=== PATIENT | male | born 1970 ===

== ENCOUNTER 2023-05-15 09:17 | Outpatient (AMB) | payer OTHER, SELFPAY ==
--- NOTE | 2023-05-15 09:26 | A.OFFVIS_ITS ---
Intake Vital Signs 05/15/23 09:34 Height 5 ft 5 in Weight 126 lb 4 oz BMI 21.0 BP 98/68 Blood Pressure Location Lt brachial Position Sitting Pulse 73 Pulse Source Pulse Oximeter Pulse Oximetry (%) 96 Oxygen Delivery Method Room Air Intake Visit Reasons: E-HEALTH CLAIMS EXAMINER: Insomnia - LVM Intake Note: NPV for Insomnia Production Operations Inspector Required: No Allergies No Known Allergies Allergy (Verified 05/15/23 09:28) HPI HPI Comments History of Present Illness Details 52 y/o male patient presents for new in-person visit for sleep consultation. Pt reports difficulty falling asleep and staying sleep. He uses marijuana to promote sleep but it is not helpful. He smokes about 10 cigarettes a day until late night. He wakes up almost every 15-20 min, tosses and turns and having difficulty to go back to sleep. The sleep problem has been worsened over the last couple of years. He keep watching TV when he wakes up and staying awake. He drinks tea and soda a lot during the day and not eating well. He tried several medications including melatonin, Nyquel, Benadryl and other OTC sleep aids and stopped due to liver problem. He denies snoring, denies daytime sleepiness. He does not work, and stays home all day and he is not physically active. Sleep questionnaire: Do you snore? No. Do you wake up gasping at night? No. Do you have episodes of apneas? No. If yes, are they witnessed? No. Do you have episodes of nocturnal chest pain or dyspnea? No. Do you have difficulty initiating sleep? Yes. Do you have difficulty maintaining sleep? Yes. Do you wake up tired? Yes. Do you have headaches upon awakening? Yes. Do you wake up with dry mouth or throat? No. Do you have GERD? No. Do you have nocturia? No. Do you have nocturnal leg cramps? Yes, sometimes. Do you have symptoms of restless legs? No. Do you act out your dreams? No. Sleep hygiene questionnaire: What is your usual sleep routine? No. Usual bedtime is at ; Usual wake up time is at . Do you take naps? No. Is your sleep environment cool, dark, and quiet? Yes. Do you exercise? No. Do you take caffeine or other stimulants? Yes, soda and tea all day. Do you use electronics in bed? Yes, watches TV. What is your work schedule? N/A. Hypersomnolence questionnaire: Do you have daytime tiredness or fatigue? Yes. Do you easily fall asleep when inactive? No. Have you ever had episodes of sudden weakness? No. Have you ever had episodes of sudden weakness associated with strong emotions? No. PFSH Family History (Updated 05/15/23 @ 09:33 by Jenniffer Jimenes CMA) Mother Diabetes Social History (Updated 05/15/23 @ 09:34 by Jenniffer Jimenes CMA) Alcohol intake: former Patient Tobacco Use Status: Current everyday Tobacco user Substance Use Type: Marijuana Review of Systems Const All systems reviewed & are unremarkable except as noted in HPI and below ENT Reports Normal hearing present Neuro Reports Normal hearing present Physical Exam Vital Signs: Last Vital Signs Pulse 73 05/15/23 09:34 BP 98/68 05/15/23 09:34 Pulse Ox 96 05/15/23 09:34 Oxygen Delivery Method Room Air 05/15/23 09:34 BMI result Body Mass Index 21.0 Const General: cooperative Nutritional Appearance: thin Orientation/consciousness: patient oriented x3 Neck Neck: Yes full ROM and Yes supple Resp Effort & Inspection: normal respiratory effort and able to speak in complete sentences Neuro General: patient oriented x3, gait normal and moves all extremities Cranial nerves: Yes Bilaterally intact EOM present, Yes Normal facial strength p resent, Yes Midline tongue present, Yes Symmetric palate elevation present, Yes Normal hearing present, Yes Ability to bilaterally rotate head present, Yes Ability to bilaterally elevate shoulders present and Yes Individual cranial nerve findings present Cognition (Neuro): normal cognition Gait exam (Neuro): Normal gait present Motor exam (neuro): 5/5 motor strength present throughout, Pronator motor function not present and no tremor noted Psych Appearance: grossly normal Mental Status: mental status grossly normal Speech and movement: Normal speech and movement present Affect: Anxious affect present Attitude: cooperative Assessment & Plan Assessment & Plan (1) Insomnia: Code(s): G47.00 - Insomnia, unspecified Plan Sleep hygiene education provided. Advised patient to limit smoking in the evening. Try to have routine sleep schedule. Limit electronic use before bedtime, increase physical activity during daytime. Try magnesium 400 mg qHS and vitamin D 3 daily. Medications: New magnesium oxide 400 mg PO DAILY 30 days 30 tabs 6RF cholecalciferol (vitamin D3) 10 mcg PO DAILY 30 days 30 caps 6RF magnesium oxide 400 mg PO BEDTIME 30 days 30 tabs 6RF Coding Level of Care Code New Pt Level 3 (33249) Diagnoses Insomnia G47.00
[2023-05-15 09:34] VITALS: BP 98/68; PULSE 73; O2SAT 96; BMI 21.0
== END 2023-05-15 09:54 | disposition home or self-care (01) ==
PROVIDERS: PCP Internal Medicine; Visit Provider Nurse Practitioner Family
DX: G47.00 Insomnia, unspecified (principal)
CPT/HCPCS: 99203

== ENCOUNTER → 2023-05-15 09:17 | Outpatient (BNVA) | payer OTHER, SELFPAY | PROVIDERS: PCP Internal Medicine; Visit Provider Nurse Practitioner Family | DX: G47.00 Insomnia, unspecified (principal) | CPT/HCPCS: 99202 ==

== ENCOUNTER 2023-09-15 11:11 | Outpatient (AMB) | payer OTHER, SELFPAY ==
--- NOTE | 2023-09-15 11:20 | MHC.OFFVIS ---
Intake Vital Signs 09/15/23 11:21 Height 5 ft 5 in Weight 122 lb 2 oz BMI 20.3 BP 160/100 H Blood Pressure Location Lt brachial Position Sitting Pulse 97 Pulse Source Pulse Oximeter Pulse Oximetry (%) 100 Oxygen Delivery Method Room Air Intake Visit Reasons: 4m f/u Insomnia - Confirmed Allergies No Known Allergies Allergy (Verified 09/15/23 11:24) HPI HPI Comments History of Present Illness Details 52 y/o male patient presents for follow up of insomnia. Pt reports he still has difficulty falling asleep and staying sleep. He uses marijuana to promote sleep but it is not helpful. He smokes about 10 cigarettes a day until late night. He wakes up almost every 15-20 min, tosses and turns and having difficulty to go back to sleep. The sleep problem has been worsened over the last couple of years. He keep watching TV when he wakes up and staying awake. He drinks tea and soda a lot during the day and not eating well. He tried several medications including melatonin, Nyquel, Benadryl and other OTC sleep aids and stopped due to liver problem. He denies snoring, denies daytime sleepiness. He does not work, and stays home all day and he is not physically active. He tried magnesium but not helpful. Sleep questionnaire: Do you snore? No. Do you wake up gasping at night? No. Do you have episodes of apneas? No. If yes, are they witnessed? No. Do you have episodes of nocturnal chest pain or dyspnea? No. Do you have difficulty initiating sleep? Yes. Do you have difficulty maintaining sleep? Yes. Do you wake up tired? Yes. Do you have headaches upon awakening? Yes. Do you wake up with dry mouth or throat? No. Do you have GERD? No. Do you have nocturia? No. Do you have nocturnal leg cramps? Yes, sometimes. Do you have symptoms of restless legs? No. Do you act out your dreams? No. Sleep hygiene questionnaire: What is your usual sleep routine? No. Usual bedtime is at ; Usual wake up time is at . Do you take naps? No. Is your sleep environment cool, dark, and quiet? Yes. Do you exercise? No. Do you take caffeine or other stimulants? Yes, soda and tea all day. Do you use electronics in bed? Yes, watches TV. What is your work schedule? N/A. Hypersomnolence questionnaire: Do you have daytime tiredness or fatigue? Yes. Do you easily fall asleep when inactive? No. Have you ever had episodes of sudden weakness? No. Have you ever had episodes of sudden weakness associated with strong emotions? No. PFSH Family History Mother Diabetes Social History Alcohol intake: former Patient Tobacco Use Status: Current everyday Tobacco user Substance Use Type: Marijuana Review of Systems Const All systems reviewed & are unremarkable except as noted in HPI and below Physical Exam Vital Signs: Last Vital Signs Pulse 97 09/15/23 11:21 BP 160/100 H 09/15/23 11:21 Pulse Ox 100 09/15/23 11:21 Oxygen Delivery Method Room Air 09/15/23 11:21 BMI result Body Mass Index 20.3 Assessment & Plan Assessment & Plan (1) Insomnia: Code(s): G47.00 - Insomnia, unspecified Plan Sleep hygiene education provided. Advised patient to limit smoking in the evening. Try to have routine sleep schedule. Limit electronic use before bedtime, increase physical activity during daytime. Try magnesium 400 mg qHS and vitamin D 3 daily. Pt declined to have sleep study. Coding Level of Care Code Est Pt Level 3 (87184) Diagnoses Insomnia G47.00
[2023-09-15 11:21] VITALS: BP 160/100; PULSE 97; O2SAT 100; BMI 20.3
== END 2023-09-15 11:33 | disposition home or self-care (01) ==
PROVIDERS: PCP Internal Medicine; Visit Provider Nurse Practitioner Family
DX: G47.00 Insomnia, unspecified (principal)
CPT/HCPCS: 99213

== ENCOUNTER → 2023-09-15 11:11 | Outpatient (BNVA) | payer OTHER, SELFPAY | PROVIDERS: PCP Internal Medicine; Visit Provider Nurse Practitioner Family | DX: G47.00 Insomnia, unspecified (principal) | CPT/HCPCS: 99212 ==